=== PATIENT | female | born 1970 | race Caucasian/White ===

== ENCOUNTER 2017-09-19 17:26 | Emergency (ER) | payer SELFPAY ==
[2017-09-19] MEDS ORDERED: ALBUTEROL SULFATE 0.083% NEB 2.5 MG/3 ML AMPUL NEB ONE (18:11)
[2017-09-19] MEDS ORDERED: PREDNISONE 20 MG TABLET PO ONE (18:11)
--- NOTE | 2017-09-19 18:22 | ER Document Report ---
HPI - HPI Patient complains to provider of: Head and chest congestion Onset: Yesterday Onset/Duration: Gradual Quality of pain: Achy Severity: Moderate Pain Level: 3 Context: Patient complains of head congestion, ears popping, and chest congestion and wheezing since yesterday. Denies fever. Has taken OTC meds to help with symptoms. Does say whenever she gets sick she usually ends up wheezing and uses her sisters inhaler as she does not have one. Associated Symptoms: Nonproductive cough, Earache, Headache, Sinus pain/ drainage. denies: Fever Exacerbated by: Coughing Relieved by: Denies Similar symptoms previously: Yes Recently seen / treated by doctor: No - ROS ROS below otherwise negative: Yes Systems Reviewed and Negative: Yes All other systems reviewed and negative - CONSTITUTIONAL Constitutional: DENIES: Fever - EENT EENT: REPORTS: Ear Pain, Congestion - NEURO Neurology: REPORTS: Headache - CARDIOVASCULAR Cardiovascular: DENIES: Chest pain - RESPIRATORY Respiratory: REPORTS: Trouble Breathing, Coughing - GASTROINTESTINAL Gastrointestinal: DENIES: Abdominal Pain - URINARY Urinary: DENIES: Dysuria - REPRODUCTIVE Reproductive: DENIES: : - MUSCULOSKELETAL Musculoskeletal: DENIES: Extremity pain - DERM Skin Color: Normal Past Medical History - General Information source: Patient - Social History Smoking Status: Current Every Day Smoker Cigarette use (# per day): Yes Frequency of alcohol use: None Drug Abuse: None Lives with: Family Family History: Reviewed & Not Pertinent Pulmonary Medical History: Reports: Hx Asthma Past Surgical History: Reports: Hx Tubal Ligation - Immunizations Hx Diphtheria, Pertussis, Tetanus Vaccination: Yes Vertical Provider Document - CONSTITUTIONAL Agree With Documented VS: Yes Exam Limitations: No Limitations General Appearance: WD/WN, No Apparent Distress - HEENT HEENT: Atraumatic, Normocephalic Notes: TMs dull bilaterally, throat with mild erythema, positive PND. No sinus tenderness. - NECK Neck: Normal Inspection, Supple - RESPIRATORY Respiratory: No Respiratory Distress, Wheezing O2 Sat by Pulse Oximetry: 95 - CARDIOVASCULAR Cardiovascular: Regular Rate, Regular Rhythm - MUSCULOSKELETAL/EXTREMETIES Musculoskeletal/Extremeties: MAEW - NEURO Level of Consciousness: Awake, Alert, Appropriate - DERM Integumentary: Warm, Dry Course - Re-evaluation Re-evalutation: 09/19/17 19:05 Lungs clear after nebulizer treatment. - Vital Signs Vital signs: Temp Pulse Resp BP Pulse Ox 98.3 F 75 133/77 H 95 09/19/17 17:31 09/19/17 17:31 09/19/17 17:31 09/19/17 17:31 Discharge - Discharge Clinical Impression: URI, acute, Wheezing Condition: Good Disposition: HOME, SELF-CARE Additional Instructions: Prednisone as prescribed Inhaler 2 puffs every 4 hours as needed for cough and/or wheezing Push fluids OTC cold medication for symptom relief Follow-up with your doctor if not better by Monday Return as needed Prescriptions: Prednisone [Deltasone 10 mg Tablet] 10 mg PO ASDIR PRN #15 tablet PRN Reason: Forms: Return to Work
[2017-09-19] MEDS ORDERED: ALBUTEROL SULFATE HFA (90 MCG/PUFF) 8 GM MDI (1 MDI/ER DISP) IH ONE (19:09)
[2017-09-19 19:26] VITALS: BP 128/59
== END 2017-09-19 19:26 | disposition home or self-care (01) ==
LOC: ER 17:26
DX: J06.9 Acute upper respiratory infection, unspecified (principal); J45.909 Unspecified asthma, uncomplicated; R05 Cough; H92.09 Otalgia, unspecified ear; R51 Headache; J34.89 Other specified disorders of nose and nasal sinuses; F17.210 Nicotine dependence, cigarettes, uncomplicated; R09.82 Postnasal drip
CPT/HCPCS: 94640; 99283; J7512; J3490

== ENCOUNTER 2019-07-10 11:19 | Emergency (ER) | payer SELFPAY ==
[2019-07-10 11:25] VITALS: BP 122/71
--- NOTE | 2019-07-10 11:40 | ER Document Report ---
Addendum entered and electronically signed by GAURAV PADILLA PA-C 07/10/19 11:46: Course - Re-evaluation Re-evalutation: We will switch to ciloxan. - Vital Signs Vital signs: Temp Pulse Resp BP Pulse Ox 97.8 F 72 18 122/71 93 07/10/19 11:24 07/10/19 11:24 07/10/19 11:24 07/10/19 11:24 07/10/19 11:24 Discharge - Discharge Clinical Impression: Conjunctivitis, left eye Qualifiers: Conjunctivitis type: acute Acute conjunctivitis type: unspecified Qualified Code(s): H10.32 - Unspecified acute conjunctivitis, left eye Condition: Stable Disposition: HOME, SELF-CARE Instructions: Conjunctivitis ([facility]), Eyedrop Use ([facility]) Additional Instructions: Keep eyes clean Avoid scratching/touching eyes Wash hands regularly Use eye drops as directed Maintain adequate fluid intake tylenol/ibuprofen as needed over the counter cold medication as needed for symptoms F/u: with your PCM in 2-3 days for a recheck Consider consult with Ophthalmology for ongoing/worsening symptoms Return to the ED with any worsening symptoms and/or development of fever, headache, changes in vision, eye pain, worsening eye redness, redness around the eyes, purulent discharge, sore throat, facial swelling, neck pain/stiffness, chest pain, palpitations, syncope, shortness of breath, trouble breathing, abdominal pain, n/v/d, blood in stool/urine, dysuria, or other worsening symptoms that are concerning to you. Prescriptions: Ciprofloxacin HCl [Ciloxan 0.3% Oph Soln 2.5 ml] 1 - 2 drop OP Q2H #1 bottle Forms: Smoking Cessation Education, Return to Work Referrals: SANDIE RAMIREZ MD [ACTIVE STAFF] - Follow up as needed Original Note: HPI - HPI Time Seen by Provider: 07/10/19 11:39 Pain Level: Denies Notes: Patient is a 48-year-old female no significant past medical history who presents complaining of left eye redness, matting, discharge that began yesterday. Patient does not wear contact lenses. Patient denies any foreign body sensation or line of work with flying debris. She is able to eat and drink without difficulty. No recent illness. She has not had any changes in her vision. Denies any headache, fever, head injury, neck pain, URI, sore throat, chest pain, palpitations, syncope, cough, shortness of breath, wheeze, dyspnea, abdominal pain, nausea/vomiting/diarrhea, urinary retention, dysuria, hematuria, or rash. - ROS Systems Reviewed and Negative: Yes All other systems reviewed and negative - REPRODUCTIVE Reproductive: DENIES: : Past Medical History - Social History Smoking Status: Current Every Day Smoker Family History: Reviewed & Not Pertinent Pulmonary Medical History: Reports: Hx Asthma Renal/ Medical History: Denies: Hx Peritoneal Dialysis Past Surgical History: Reports: Hx Tubal Ligation - Immunizations Hx Diphtheria, Pertussis, Tetanus Vaccination: Yes Vertical Provider Document - CONSTITUTIONAL Agree With Documented VS: Yes Notes: PHYSICAL EXAMINATION: GENERAL: Well-appearing, well-nourished and in no acute distress. A&Ox4 HEAD: Atraumatic, normocephalic. EYES: Pupils equal round and reactive to light, extraocular movements intact, sclera anicteric, conjunctiva left injected with scant purulent discharge and mild matting. Non-tender to palp of the globe and eye itself. Rt conjunctiva wnl. No surrounding erythema or swelling noted. Visual acuity 20/25 b/l and in each eye (performed by myself at bedside with my own eye chart). No obvious foreign body noted. ENT: EAC clear b/l. TM's intact b/l without erythema, fluid, or perforation. Nares patent and without discharge. oropharynx clear without exudates. No tonsilar hypertrophy or erythema. Moist mucous membranes. No sinus tenderness. Uvula midline. No palatine shift. No airway compromise. No drooling or hoarseness. NECK: Normal range of motion, supple without lymphadenopathy. No rigidity /meningismus. LUNGS: Breath sounds clear to auscultation bilaterally and equal. No wheezes rales or rhonchi. HEART: Regular rate and rhythm without murmurs, rubs, gallops. Extremities: No cyanosis, clubbing, or edema b/l. Peripheral pulses 2+. Capillary refill less than 3 seconds. NEUROLOGICAL: Cranial nerves grossly intact. Normal speech, normal gait. PSYCH: Normal mood, normal affect. SKIN: Warm, Dry, normal turgor, no rashes or lesions noted. - INFECTION CONTROL TRAVEL OUTSIDE OF THE [place] IN LAST 30 DAYS: No Course - Re-evaluation Re-evalutation: 07/10/19 11:43 Patient is an afebrile, well-hydrated, 48 year-old female who presents to the emergency department with conjunctivitis to her left eye suspect viral/bacterial. Vitals are acceptable without significant tachycardia, tachypnea, or hypoxia. PE is otherwise unremarkable. Patient is nontoxic- appearing and is able to tolerate p.o. without difficulty. No labs or imaging warranted. Low suspicion for any retained corneal or lid foreign body, deep space infection including orbital cellulitis/abscess, acute glaucoma, penetrating globe injury, retinal detachment, meningitis, sepsis, fracture, compartment syndrome. I will send home with a prescription for Polytrim to use as directed. Conservative measures otherwise for symptoms with proper handwashing. Recheck with your PCM in 2-3 days. Consider follow-up with ophthalmology. Return to the ED with any worsening/concerning symptoms otherwise as reviewed in discharge. Patient is in agreement. - Vital Signs Vital signs: Temp Pulse Resp BP Pulse Ox 97.8 F 72 18 122/71 93 07/10/19 11:24 07/10/19 11:24 07/10/19 11:24 07/10/19 11:24 07/10/19 11:24 Discharge - Discharge Clinical Impression: Conjunctivitis, left eye Qualifiers: Conjunctivitis type: acute Acute conjunctivitis type: unspecified Qualified Code(s): H10.32 - Unspecified acute conjunctivitis, left eye Condition: Stable Disposition: HOME, SELF-CARE Instructions: Conjunctivitis ([facility]), Eyedrop Use ([facility]) Additional Instructions: Keep eyes clean Avoid scratching/touching eyes Wash hands regularly Use eye drops as directed Maintain adequate fluid intake tylenol/ibuprofen as needed over the counter cold medication as needed for symptoms F/u: with your PCM in 2-3 days for a recheck Consider consult with Ophthalmology for ongoing/worsening symptoms Return to the ED with any worsening symptoms and/or development of fever, headache, changes in vision, eye pain, worsening eye redness, redness around the eyes, purulent discharge, sore throat, facial swelling, neck pain/stiffness, chest pain, palpitations, syncope, shortness of breath, trouble breathing, abdominal pain, n/v/d, blood in stool/urine, dysuria, or other worsening symptoms that are concerning to you. Prescriptions: Polymyxin B Sulf/Trimethoprim [Polytrim Eye Drops] 1 drop OD Q3H #10 ml Forms: Smoking Cessation Education, Return to Work Referrals: SANDIE RAMIREZ MD [ACTIVE STAFF] - Follow up as needed
== END 2019-07-10 11:46 | disposition home or self-care (01) ==
LOC: ER 11:19
DX: H10.32 Unspecified acute conjunctivitis, left eye (principal); F17.200 Nicotine dependence, unspecified, uncomplicated; Z98.51 Tubal ligation status
CPT/HCPCS: 99282

== ENCOUNTER 2020-07-10 13:00 | Inpatient (IN) | payer SELFPAY ==
--- NOTE | 2020-07-10 13:14 | ER Document Report ---
ED Medical Screen (RME) - General Chief Complaint: Abdominal Pain >50 Stated Complaint: ABDOMINAL PAIN Time Seen by Provider: 07/10/20 13:04 Mode of Arrival: Ambulatory Information source: Patient Notes: 49-year-old female presented to ED for complaint of right lower quadrant abdominal pain. She states it started in the upper right and now is in the lower right quadrant. She states she has had some nausea and vomiting no fevers. She is alert oriented respirations regular nonlabored speaking in full sentences. She does have tenderness to the right lower quadrant. She states she tried to go to the bathroom this morning just had a little bowel movement. She states she does smoke a pack half pack a day drinks monthly no drugs. She states only medical history is a bilateral tubal ligation. She states she has had no other surgeries and has no other major ailments. She states she is allergic to penicillin. Patient is afebrile at this time. I have greeted and performed a rapid initial assessment of this patient. A comprehensive ED assessment and evaluation of the patient, analysis of test results and completion of medical decision making process will be conducted by an additional ED providers. TRAVEL OUTSIDE OF THE [place] IN LAST 30 DAYS: No - Related Data Allergies/Adverse Reactions: Penicillins Allergy (Severe, Verified 09/19/17 18:35) Anaphylaxis Past Medical History Pulmonary Medical History: Reports: Hx Asthma Renal/ Medical History: Denies: Hx Peritoneal Dialysis Past Surgical History: Reports: Hx Tubal Ligation - Immunizations Hx Diphtheria, Pertussis, Tetanus Vaccination: Yes Physical Exam - Vital signs Vitals: Temp Pulse Resp BP Pulse Ox 99.0 F 89 18 156/78 H 96 07/10/20 13:05 07/10/20 13:05 07/10/20 13:05 07/10/20 13:05 07/10/20 13:05 Course - Vital Signs Vital signs: Temp Pulse Resp BP Pulse Ox 99.0 F 89 18 156/78 H 96 07/10/20 13:05 07/10/20 13:05 07/10/20 13:05 07/10/20 13:05 07/10/20 13:05
[2020-07-10] MEDS ORDERED: ONDANSETRON 4 MG TAB.RAPDIS PO ONE (13:17)
[2020-07-10] MEDS ORDERED: OXYCODONE-ACETAMINOPHEN 5-325 MG TABLET PO ONE (13:18)
[2020-07-10 14:05] LABS: ABSOLUTE BASOPHILS # (AUTO) 0.2 10^3/uL (0.0-0.2); ABSOLUTE EOSINOPHILS # (AUTO) 0.1 10^3/uL (0.0-0.6); ABSOLUTE LYMPHOCYTES (AUTO) 1.4 10^3/uL (0.5-4.7); ABSOLUTE MONOCYTES (AUTO) 0.6 10^3/uL (0.1-1.4); ABSOLUTE NEUT (AUTO) 11.9 10^3/uL (1.7-8.2); BASOPHILS % (AUTO) 1.1 % (0-2); EOSINOPHILS % (AUTO) 0.4 % (0-6); HEMATOCRIT 45.1 % (36.0-47.0); HEMOGLOBIN 15.2 g/dL (12.0-15.5); LYMPHOCYTES % (AUTO) 9.7 % (13-45); MEAN CORPUSCULAR HGB CONC 33.7 g/dL (32.0-36.0); MEAN CORPUSCULAR VOLUME 98 fl (80-97); MONOCYTES % (AUTO) 4.1 % (3-13); PLATELET COUNT 335 10^3/uL (150-450); RED BLOOD COUNT 4.61 10^6/uL (3.72-5.28); RED CELL DISTRIBUTION WIDTH 13.9 % (11.5-14.0); SEGMENTED NEUTROPHILS % (AUTO) 84.7 % (42-78); TOTAL CELLS COUNTED % (AUTO) 100 %; WHITE BLOOD COUNT 14.1 10^3/uL (4.0-10.5)
[2020-07-10 14:37] LABS: ALKALINE PHOSPHATASE 90 U/L (38-126); ANION GAP 5 (5-19); ASPARTATE AMINO TRANSFERASE 27 U/L (14-36); BILIRUBIN,TOTAL 0.5 mg/dL (0.2-1.3); BLOOD UREA NITROGEN 12 mg/dL (7-20); CALCIUM 9.3 mg/dL (8.4-10.2); CARBON DIOXIDE 27 mmol/L (22-30); CHLORIDE 103 mmol/L (98-107); GLUCOSE 126 mg/dL (75-110); POTASSIUM 5.1 mmol/L (3.6-5.0); TOTAL PROTEIN 7.4 g/dL (6.3-8.2)
[2020-07-10 15:01] LABS: AMORPHOUS SEDIMENT,URINE 3+ /HPF; APPEARANCE,URINE TURBID; BILIRUBIN,URINE NEGATIVE (NEGATIVE); COLOR,URINE YELLOW; GLUCOSE, URINE NEGATIVE (NEGATIVE); KETONES,URINE NEGATIVE (NEGATIVE); LEUKOCYTE ESTERASE,URINE NEGATIVE (NEGATIVE); NITRITE,URINE NEGATIVE (NEGATIVE); PROTEIN,URINE NEGATIVE (NEGATIVE); URINE SPECIFIC GRAVITY 1.023; UROBILINOGEN,URINE NEGATIVE mg/dL (<2.0)
--- NOTE | 2020-07-10 16:17 | RADIOLOGY REPORT (SQ) ---
EXAM DESCRIPTION: CT ABD/PELVIS ORAL ONLY IMAGES COMPLETED DATE/TIME: 07/10/2020 4:05 pm REASON FOR STUDY: Right lower quadrant abdominal pain COMPARISON: None. TECHNIQUE: CT scan of the abdomen and pelvis performed without intravenous or oral contrast. Images reviewed with lung, soft tissue, and bone windows. Reconstructed coronal and sagittal MPR images revi ewed. All images stored on PACS. All CT scanners at this facility use dose modulation, iterative reconstruction, and/or weight based d osing when appropriate to reduce radiation dose to as low as reasonably achievable (ALARA). [facility]: Dose Right [facility]: CareDose [facility]: Dose Right [facility]: Teradose 4D [facility]: [employer] RADIATION DOSE: CT Rad equipment meets quality standard of care and radiation dose reduction techniq ues were employed. CTDIvol: 17.4 mGy. DLP: 918 mGy-cm.mGy. LIMITATIONS: None. FINDINGS: LOWER CHEST: No significant findings. No nodules or infiltrates. NON-CONTRASTED LIVER, SPLEEN, ADRENALS: Evaluation limited by lack of IV contrast. No identified sign ificant masses. PANCREAS: No masses. No peripancreatic inflammatory changes. GALLBLADDER: No identified stones by CT criteria. No inflammatory changes to suggest cholecystitis. RIGHT KIDNEY AND URETER: No suspicious masses. Assessment limited by lack of IV contrast. No signif icant calcifications. No hydronephrosis or hydroureter. LEFT KIDNEY AND URETER: No suspicious masses. Assessment limited by lack of IV contrast. No signifi cant calcifications. No hydronephrosis or hydroureter. AORTA AND RETROPERITONEUM: No aneurysm. No retroperitoneal masses or adenopathy. BOWEL AND PERITONEAL CAVITY: No obvious masses or inflammatory changes. No free fluid. APPENDIX: The appendix is dilated measured at 11.5 mm. Mild surrounding edema best demonstrated on s eries 3, image 46. Early appendicitis cannot be excluded. PELVIS, BLADDER, AND ABDOMINAL WALL:No abnormal masses. No free fluid. Bladder normal. BONES: No significant findings. OTHER: No other significant finding. IMPRESSION: Dilated appendix with very mild is surrounding inflammatory change. Early appendicitis is suspected. COMMENT: Quality ID # [id number]: Final reports with documentation of one or more dose reduction techniques (e.g., Automated exposure control, adjustment of the mA and/or kV according to patient size, use of iterative reconstruction technique) TECHNICAL DOCUMENTATION: JOB ID: [id number] 2010 [employer]- All Rights Reserved Reading location - IP/workstation name: [email or web address]
[2020-07-10] MEDS ORDERED: MORPHINE SULFATE 10 MG/ML INJ IV ONE (16:43)
[2020-07-10] MEDS ORDERED: RINGERS SOLUTION,LACTATED 1,000 ML IV ONE (16:43)
--- NOTE | 2020-07-10 16:45 | ER Document Report ---
ED GI/ - General Chief Complaint: Abdominal Pain >50 Stated Complaint: ABDOMINAL PAIN Time Seen by Provider: 07/10/20 13:04 Mode of Arrival: Ambulatory Information source: Patient Notes: 49-year-old female presents to the emergency room complaining of sudden onset of abdominal pain that started around 5 AM this morning. Complains of nausea with vomiting. Right lower quadrant cramping. No bad food. No fevers. No recent travel. No COVID-19 exposure. Did not take anything for her symptoms. TRAVEL OUTSIDE OF THE [place] IN LAST 30 DAYS: No - Related Data Allergies/Adverse Reactions: Penicillins Allergy (Severe, Verified 09/19/17 18:35) Anaphylaxis Past Medical History - General Information source: Patient - Social History Smoking Status: Current Every Day Smoker Chew tobacco use (# tins/day): No Frequency of alcohol use: Occasional Drug Abuse: None Family History: Reviewed & Not Pertinent Pulmonary Medical History: Reports: Hx Asthma Renal/ Medical History: Denies: Hx Peritoneal Dialysis Past Surgical History: Reports: Hx Tubal Ligation - Immunizations Hx Diphtheria, Pertussis, Tetanus Vaccination: Yes Review of Systems - Review of Systems Constitutional: No symptoms reported Cardiovascular: No symptoms reported Gastrointestinal: Abdominal pain, Nausea, Vomiting Skin: No symptoms reported Neurological/Psychological: No symptoms reported -: Yes All other systems reviewed and negative Physical Exam - Vital signs Vitals: Temp Pulse Resp BP Pulse Ox 99.0 F 89 18 156/78 H 96 07/10/20 13:05 07/10/20 13:05 07/10/20 13:05 07/10/20 13:05 07/10/20 13:05 - General General appearance: Appears well, Alert In distress: Moderate - Respiratory Respiratory status: No respiratory distress Chest status: Nontender Breath sounds: Normal Chest palpation: Normal - Cardiovascular Rhythm: Regular Heart sounds: Normal auscultation Murmur: No - Abdominal Inspection: Normal Distension: No distension Bowel sounds: Normal Tenderness: Tender, McBurney's point, Guarding, Rebound Organomegaly: No organomegaly - Back Back: Normal, Nontender. No: CVA tenderness - Neurological Neuro grossly intact: Yes Cognition: Normal Orientation: AAOx4 [place]ope Coma Scale Eye Opening: Spontaneous Ervin Coma Scale Verbal: Oriented [place] Coma Scale Motor: Obeys Commands Swoope Coma Scale Total: 15 Speech: Normal Motor strength normal: LUE, RUE, LLE, RLE Sensory: Normal - Skin Skin Temperature: Warm Skin Moisture: Dry Skin Color: Normal Course - Re-evaluation Re-evalutation: 07/10/20 16:44 Patient is resting with persistent pain. Reviewed lab and initial CT results with patient. Aware of appendicitis. Also aware of need for additional CT with IV contrast prior to calling surgery. Patient is agreeable to additional CT. CT, IV, and medications were ordered. 07/10/20 17:41 Spoke with patient confirmed acute appendicitis. Aware that I have spoken with general surgery. Patient is agreeable to admission. Patient will be seen by Dr. Cuevas general surgeon. 07/10/20 20:33 - Vital Signs Vital signs: Temp Pulse Resp BP Pulse Ox 99.5 F 77 16 132/73 H 95 07/10/20 20:01 07/10/20 20:01 07/10/20 20:01 07/10/20 20:01 07/10/20 20:01 - Laboratory Result Diagrams: 07/10/20 13:41 07/10/20 13:41 Laboratory results interpreted by me: 07/10/20 07/10/20 07/10/20 13:41 13:41 13:41 WBC 14.1 H MCV 98 H Lymph % (Auto) 9.7 L Absolute Neuts (auto) 11.9 H Seg Neutrophils % 84.7 H Sodium 135.2 L Potassium 5.1 H Glucose 126 H Urine Blood SMALL H - Diagnostic Test Radiology reviewed: Reports reviewed - Consults Dr. Cuevas Time consulted: 17:37 Reason for consultation: 07/10/20 17:42 Reviewed all labs and CT results with Dr. Cuevas who agrees to accept patient as admission for acute appendicitis. Rapid COVID testing was ordered, IV antibi otics ordered. Consulted provider: will come to ER Discharge - Discharge Clinical Impression: Acute appendicitis Qualifiers: Acute appendicitis type: unspecified acute appendicitis type Qualified Code(s): K35.80 - Unspecified acute appendicitis Condition: Stable Disposition: ADMITTED OBSERVATION Admitting Provider: Surgicalist Unit Admitted: Surgical Floor
--- NOTE | 2020-07-10 17:28 | RADIOLOGY REPORT (SQ) ---
EXAM DESCRIPTION: CT ABD/PELVIS WITH IV ONLY IMAGES COMPLETED DATE/TIME: 07/10/2020 5:16 pm REASON FOR STUDY: abdominal pain COMPARISON: None. TECHNIQUE: CT scan of the abdomen and pelvis performed with oral contrast and no intravenous contras t. Images reviewed with lung, soft tissue, and bone windows. Reconstructed coronal and sagittal MPR i mages reviewed. All images stored on PACS. All CT scanners at this facility use dose modulation, iterative reconstruction, and/or weight based d osing when appropriate to reduce radiation dose to as low as reasonably achievable (ALARA). [facility]: Dose Right [facility]: CareDose [facility]: Dose Right [facility]: Teradose 4D [facility]: [employer] RADIATION DOSE: CT Rad equipment meets quality standard of care and radiation dose reduction techniq ues were employed. CTDIvol: NaN - NaN mGy. DLP: 0 mGy-cm.mGy. LIMITATIONS: None. FINDINGS: LOWER CHEST: No significant findings. No nodules or infiltrates. NON-CONTRASTED LIVER, SPLEEN, ADRENALS: Evaluation limited by lack of IV contrast. No identified sign ificant masses. PANCREAS: No masses. No peripancreatic inflammatory changes. GALLBLADDER: No identified stones by CT criteria. No inflammatory changes to suggest cholecystitis. RIGHT KIDNEY AND URETER: No solid masses. No significant calcification. No hydronephrosis or hydroure ter. LEFT KIDNEY AND URETER: No solid masses. No significant calcification. No hydronephrosis or hydrouret er. AORTA AND RETROPERITONEUM: No aneurysm. No retroperitoneal masses or adenopathy. BOWEL AND PERITONEAL CAVITY: No obvious masses or inflammatory changes. No free fluid. APPENDIX: The appendix is well visualized, and appears mildly prominent with trace periappendiceal in flammatory changes. No pneumoperitoneum. No abscess. PELVIS, BLADDER, AND ABDOMINAL WALL: No abnormal pelvic masses. No abdominal wall hernias. Bladder un remarkable. BONES: Incidental note is made of right marielena sacralization of the L5 element demonstrating and Bertol otti segment with sclerotic margins suggesting an element of pseudoarthrosis. Mild degenerative limon ges are seen of the hips. OTHER: No other significant finding. IMPRESSION: Acute uncomplicated appendicitis. Chronic and incidental findings as detailed above. TECHNICAL DOCUMENTATION: JOB ID: [id number] Quality ID # [id number]: Final reports with documentation of one or more dose reduction techniques (e.g., Au tomated exposure control, adjustment of the mA and/or kV according to patient size, use of iterative reconstruction technique) 2010 [employer]- All Rights Reserved Reading location - IP/workstation name: [email or web address]
[2020-07-10] MEDS ORDERED: METRONIDAZOLE 500 MG/NS RTU 500 MG/100 ML RTUPB IV ONE (17:41)
[2020-07-10] MEDS ORDERED: CIPROFLOXACIN 400 MG/D5W RTU 400 MG/200 ML RTUPB IV ONE (17:41)
[2020-07-10 18:44] LABS: URINE AMPHETAMINES SCREEN NEGATIVE; URINE BARBITURATES SCREEN NEGATIVE; URINE BENZODIAZEPINES SCREEN NEGATIVE; URINE MARIJUANA (THC) SCREEN NEGATIVE; URINE METHADONE SCREEN NEGATIVE; URINE PHENCYCLIDINE SCREEN NEGATIVE
[2020-07-10 18:45] LABS: URINE COCAINE SCREEN UNCONFIRMED POSITIVE
[2020-07-10] MEDS ORDERED: ONDANSETRON HCL INJ/PF 4 MG/2 ML SDV IV PRN (19:24)
--- NOTE | 2020-07-10 19:30 | Progress Note ---
Provider Note Provider Note: Urine drug screen is positive for cocaine. I again discussed the case with anesthesia. They have recommended admission with IV antibiotics, to allow the cocaine to metabolize from her system. In their opinion, the risk of adverse cardiac events is higher than risk of waiting. I believe this is reasonable, as she does not have sign of overwhelming sepsis or perforation. Plan for surgery tomorrow, after repeat urine drug screen.
--- NOTE | 2020-07-10 19:31 | PDOC H&P ---
History of Present Illness Patient complains of: Right lower quadrant abdominal pain, nausea, vomiting History of Present Illness: AHMET DAUGHERTY is a 49 year old female with a 1 day history of sharp, stabbing right lower quadrant abdominal pain. She has had accompanying nausea and occasional vomiting. Her pain does not radiate. It is worse with movement and palpation. Nothing makes it better. She denies fevers or chills. She rates her pain as 4 out of 10. It has progressively worsened over the last 12 hours. She denies melena, hematochezia, diarrhea, constipation, fatigue, headache, blurry vision, dizziness, orthostasis. Past Medical History Pulmonary Medical History: Reports: Asthma Past Surgical History Past Surgical History: Reports: Tubal Ligation Social History Smoking Status: Current Every Day Smoker Electronic Cigarette use?: No Frequency of Alcohol Use: Social - Once per week Hx Recreational Drug Use: Yes Drugs: Cocaine - Last used cocaine 3 days ago Family History Family History: Reviewed & Not Pertinent Parental Family History Reviewed: Yes Children Family History Reviewed: Yes Sibling(s) Family History Reviewed.: Yes Medication/Allergy Home Medications: Lactase [Dairy Digestive] 9,000 unit PO DAILY 07/10/20 Allergies/Adverse Reactions: Penicillins Allergy (Severe, Verified 09/19/17 18:35) Anaphylaxis Review of Systems Constitutional: ABSENT: anorexia, chills, fatigue, fever(s) Eyes: ABSENT: visual disturbances Ears: ABSENT: hearing changes Nose, Mouth, and Throat: ABSENT: sore throat Cardiovascular: ABSENT: chest pain Respiratory: ABSENT: cough Gastrointestinal: PRESENT: abdominal pain, bloating, nausea, vomiting. ABSENT: hematemesis, hematochezia, melena Genitourinary: ABSENT: dysuria Musculoskeletal: ABSENT: back pain Integumentary: ABSENT: pruritus, rash Neurological: ABSENT: confusion, convulsions, dizziness Psychiatric: ABSENT: anxiety, depression Endocrine: ABSENT: cold intolerance, heat intolerance Hematologic/Lymphatic: ABSENT: easy bleeding, easy bruising Physical Exam Vital Signs: Temp Pulse Resp BP Pulse Ox 99.0 F 89 18 156/78 H 96 07/10/20 13:05 07/10/20 13:05 07/10/20 13:05 07/10/20 13:05 07/10/20 13:05 Intake & Output 07/09/20 07/10/20 07/11/20 06:59 06:59 06:59 Weight 99 kg General appearance: PRESENT: no acute distress, cooperative Head exam: PRESENT: atraumatic, normocephalic Eye exam: PRESENT: EOMI, PERRLA. ABSENT: scleral icterus Mouth exam: PRESENT: moist, neck supple Neck exam: ABSENT: meningismus, tenderness, thyromegaly, tracheal deviation Respiratory exam: PRESENT: unlabored. ABSENT: tachypnea, wheezes Cardiovascular exam: ABSENT: tachycardia Pulses: PRESENT: normal radial pulses GI/Abdominal exam: PRESENT: soft, tenderness - Right lower quadrant. ABSENT: distended, firm Rectal exam: PRESENT: deferred Extremities exam: ABSENT: clubbing Musculoskeletal exam: ABSENT: deformity Neurological exam: PRESENT: alert, awake, oriented to person, oriented to place, oriented to time, oriented to situation, CN II-XII grossly intact. ABSENT: motor sensory deficit Psychiatric exam: ABSENT: agitated, anxious, depressed Focused psych exam: ABSENT: delusional Skin exam: ABSENT: cyanosis, erythema, jaundice Results Laboratory Results: 07/10/20 13:41 07/10/20 13:41 07/10/20 07/10/20 07/10/20 13:41 13:41 13:41 WBC 14.1 H RBC 4.61 Hgb 15.2 Hct 45.1 MCV 98 H MCH 33.0 MCHC 33.7 RDW 13.9 Plt Count 335 Seg Neutrophils % 84.7 H Sodium 135.2 L Potassium 5.1 H Chloride 103 Carbon Dioxide 27 Anion Gap 5 BUN 12 Creatinine 0.78 Est GFR ( Amer) > 60 Glucose 126 H Calcium 9.3 Total Bilirubin 0.5 AST 27 Alkaline Phosphatase 90 Total Protein 7.4 Albumin 4.0 Lipase 34.6 Urine Color YELLOW Urine Appearance TURBID Urine pH 5.0 Ur Specific [place] 1.023 Urine Protein NEGATIVE Urine Glucose (UA) NEGATIVE Urine Ketones NEGATIVE Urine Blood SMALL H Urine Nitrite NEGATIVE Ur Leukocyte Esterase NEGATIVE Urine WBC (Auto) 4 Impressions: Abdomen/Pelvis CT 07/10/20 16:35 IMPRESSION: Acute uncomplicated appendicitis. Chronic and incidental findings as detailed above. Assessment & Plan - Diagnosis (1) Acute appendicitis Qualifiers: Acute appendicitis type: unspecified acute appendicitis type Qualified Code(s): K35.80 - Unspecified acute appendicitis Is this a current diagnosis for this admission?: Yes - Time Anticipated Discharge Disposition: Home, Self Care Anticipated Discharge Timeframe: unknown - Plan Summary Plan Summary: 51-year-old female with right lower quadrant pain, nausea, vomiting. She has a CT scan which shows inflammation of the appendix, consistent with acute appendicitis. Clinically, she does appear to have acute appendicitis. I have discussed her social history at length. She reports taking cocaine approximately 3 days ago. I will check her urine for evidence of cocaine. I have discussed this at length with anesthesia. The recommendation is as follows: If she still has cocaine residual in her system, she will need to be deferred until tomorrow. We will make a decision regarding surgery depending on her urine drug screen.
[2020-07-10] MEDS: FAMOTIDINE INJ/PF 20 MG/2 ML SDV IV SCH (21:52)
[2020-07-10] MEDS: KETOROLAC TROMETHAMINE INJ/PF 30 MG/1 ML SDV IV SCH (21:52)
[2020-07-10] MEDS: DEXTROSE 5%-LACTATED RINGERS 1,000 ML IV PRN (21:53)
[2020-07-10] MEDS ORDERED: METRONIDAZOLE 500 MG/NS RTU 500 MG/100 ML RTUPB IV SCH (22:00)
[2020-07-10] MEDS ORDERED: CIPROFLOXACIN 400 MG/D5W RTU 400 MG/200 ML RTUPB IV SCH (22:00)
[2020-07-11] MEDS: KETOROLAC TROMETHAMINE INJ/PF 30 MG/1 ML SDV IV SCH ×3 (05:25→21:30)
[2020-07-11] MEDS: METRONIDAZOLE 500 MG/NS RTU 500 MG/100 ML RTUPB IV SCH ×3 (05:26→22:33)
[2020-07-11] MEDS: DEXTROSE 5%-LACTATED RINGERS 1,000 ML IV PRN (07:02)
[2020-07-11] MEDS ORDERED: NEOSTIGMINE METHYLSULFATE 10 MG/10 ML VIAL ONE (09:49)
[2020-07-11] MEDS ORDERED: GLYCOPYRROLATE 1 MG/5 ML VIAL ONE (09:49)
[2020-07-11] MEDS: CIPROFLOXACIN 400 MG/D5W RTU 400 MG/200 ML RTUPB IV SCH ×2 (10:12→21:29)
[2020-07-11] MEDS: FAMOTIDINE INJ/PF 20 MG/2 ML SDV IV SCH ×2 (10:12→21:30)
[2020-07-11] MEDS: MORPHINE SULFATE 10 MG/ML INJ IV PRN (12:06)
[2020-07-11 14:32] LABS: URINE AMPHETAMINES SCREEN NEGATIVE; URINE BARBITURATES SCREEN NEGATIVE; URINE BENZODIAZEPINES SCREEN NEGATIVE; URINE MARIJUANA (THC) SCREEN NEGATIVE; URINE METHADONE SCREEN NEGATIVE; URINE PHENCYCLIDINE SCREEN NEGATIVE
[2020-07-11] MEDS ORDERED: BUPIVACAINE HCL 0.25 % INJ/PF (2.5 MG/1 ML) 30 ML VIAL ONE (15:31)
[2020-07-11] MEDS ORDERED: DEXAMETHASONE SOD PHOSPHATE INJ 4 MG/1 ML VIAL ONE (16:05)
[2020-07-11] MEDS ORDERED: ONDANSETRON HCL INJ/PF 4 MG/2 ML SDV ONE (16:05)
[2020-07-11] MEDS ORDERED: LIDOCAINE 2% INJ-PF (100 MG/5 ML) SYRINGE ONE (16:05)
[2020-07-11] MEDS ORDERED: FENTANYL CITRATE INJ/PF 100 MCG/2 ML AMPUL ONE (16:05)
[2020-07-11] MEDS ORDERED: MIDAZOLAM 2 MG/2 ML INJ ONE (16:05)
[2020-07-11] MEDS ORDERED: HYDROMORPHONE HCL INJ/PF 2 MG/ML AMPULE ONE (16:06)
[2020-07-11] MEDS ORDERED: PROPOFOL INJ 200 MG/20 ML VIAL IV ONE (16:06)
[2020-07-11 16:18] LABS: URINE AMPHETAMINES SCREEN NEGATIVE; URINE BARBITURATES SCREEN NEGATIVE; URINE BENZODIAZEPINES SCREEN NEGATIVE; URINE MARIJUANA (THC) SCREEN NEGATIVE; URINE METHADONE SCREEN NEGATIVE; URINE PHENCYCLIDINE SCREEN NEGATIVE
[2020-07-11] MEDS ORDERED: FENTANYL CITRATE INJ/PF 100 MCG/2 ML AMPUL IV PRN ×3 (17:18)
[2020-07-11] MEDS ORDERED: OXYCODONE-ACETAMINOPHEN 5-325 MG TABLET PO PRN ×2 (17:18)
[2020-07-11] MEDS ORDERED: MORPHINE SULFATE 10 MG/ML INJ IV PRN (17:18)
[2020-07-11] MEDS ORDERED: MEPERIDINE HCL/PF INJ 25 MG/1 ML DISP.SYRIN IV PRN (17:18)
[2020-07-11] MEDS ORDERED: DIPHENHYDRAMINE HCL 50 MG/ML VIAL IV PRN (17:18)
[2020-07-11] MEDS ORDERED: PROMETHAZINE HCL INJ 25 MG/1 ML VIAL IV PRN ×2 (17:18)
[2020-07-11] MEDS ORDERED: SUGAMMADEX SODIUM 200 MG/2 ML SDV IV ONE (17:38)
[2020-07-11] MEDS ORDERED: ACETAMINOPHEN 1,000 MG/100 ML RTUPB IV ONE (18:03)
--- NOTE | 2020-07-11 18:04 | Operative Report ---
Nonrecallable Operative Report DATE OF SURGERY: 07/11/20 PREOPERATIVE DIAGNOSIS: appendicitis POSTOPERATIVE DIAGNOSIS: Ruptured appendicitis OPERATION: Laparoscopic appendectomy SURGEON: HUSSAIN LIMON ANESTHESIA: GA TISSUE REMOVED OR ALTERED: Appendix COMPLICATIONS: None ESTIMATED BLOOD LOSS: 10 cc INTRAOPERATIVE FINDINGS: Ruptured appendicitis PROCEDURE: Patient brought to the operating awake alert stable condition placed in the operative table supine position induced under general anesthesia and intubated. After appropriate timeout site verification the procedure commenced. An infraumbilical 5 mm incision was made with a 15 blade and a 5 mm port a varies needle was placed into the abdominal cavity intra-abdominal visualization after insufflation revealed no evidence of Veress needle or trocar injury a suprapubic 5 mm port was placed under direct vision a left lower quadrant 11 mm port all under direct vision. Initial visualization revealed approximately 50 to 100 cc of purulent fluid in the pelvis and right lower quadrant this was suctioned free. The cecum was identified and placed on traction the appendix was identified the mesoappendix was then grasped with a grasper and we came across the mesoappendix with 1 firing of the CAMILLE stapler with a vascular load. We then came across the base of the appendix on the cecum with 1 firing of the Endo CAMILLE stapler with a blue load the appendix was placed in the Endobag and removed through the left lower quadrant port site the pelvis right upper quadrant right abdominal cavity was copiously irrigated with normal saline suctioned dry until we had a clear effluent. The left lower quadrant incision was closed with 0 Vicryl in the fascia and then all 3 skin incisions were closed with intracuticular 4-0 Biosyn there were anesthetized with point 5% Marcaine solution and Steri-Strips were applied which completed the procedure Estimated blood loss was less than 10 cc sponge and needle counts correct x2 the patient was awakened in the operating room extubated transferred recovery in stable condition no complications
[2020-07-11 19:16] LABS: HEMATOCRIT 40.6 % (36.0-47.0); HEMOGLOBIN 13.8 g/dL (12.0-15.5); MEAN CORPUSCULAR HEMOGLOBIN 33.8 pg (27.0-33.4); MEAN CORPUSCULAR VOLUME 99 fl (80-97); PLATELET COUNT 226 10^3/uL (150-450); RED BLOOD COUNT 4.08 10^6/uL (3.72-5.28); WHITE BLOOD COUNT 10.3 10^3/uL (4.0-10.5)
[2020-07-11 19:32] LABS: BLOOD UREA NITROGEN 8 mg/dL (7-20); GLUCOSE 149 mg/dL (75-110); POTASSIUM 4.2 mmol/L (3.6-5.0)
[2020-07-11 19:38] LABS: CARBON DIOXIDE 26 mmol/L (22-30); CHLORIDE 103 mmol/L (98-107)
[2020-07-11 19:40] LABS: ABSOLUTE LYMPHOCYTES# (MANUAL) 0.3 10^3/uL (0.5-4.7); ABSOLUTE MONOCYTES # (MANUAL) 0.1 10^3/uL (0.1-1.4); BAND NEUTROPHILS % (MANUAL) 6 % (3-5); BASOPHILS % (MANUAL) 0 % (0-2); EOSINOPHILS % (MANUAL) 1 % (0-6); LYMPHOCYTES % (MANUAL) 3 % (13-45); MONOCYTES % (MANUAL) 1 % (3-13); SEGMENTED NEUTROPHILS % (MAN) 89 % (42-78); TOTAL CELLS COUNTED 100
[2020-07-11 19:41] LABS: ANION GAP 5 (5-19); PLATELET COMMENT ADEQUATE; RBC MORPHOLOGY COMMENT NORMO-CYTIC/CHROMIC; TOXIC GRANULATION SLIGHT; TOXIC VACUOLATION PRESENT
[2020-07-12] MEDS: DEXTROSE 5%-LACTATED RINGERS 1,000 ML IV PRN ×2 (01:42→15:58)
[2020-07-12] MEDS: METRONIDAZOLE 500 MG/NS RTU 500 MG/100 ML RTUPB IV SCH ×3 (05:04→21:39)
[2020-07-12] MEDS: KETOROLAC TROMETHAMINE INJ/PF 30 MG/1 ML SDV IV SCH ×3 (05:05→21:39)
--- NOTE | 2020-07-12 09:37 | PDOC PROGRESS REPORT ---
Subjective Progress Note for:: 07/12/20 Subjective:: feesl better this am Reason For Visit: ACUTE APPENDICITIS,COCAINE POSITIVE Physical Exam Vital Signs: Temp Pulse Resp BP Pulse Ox 98.5 F 76 18 101/54 L 96 07/12/20 07:26 07/12/20 07:26 07/12/20 07:26 07/12/20 07:26 07/12/20 07:26 Intake & Output 07/11/20 07/12/20 07/13/20 06:59 06:59 06:59 Intake Total 1882 4800 150 Output Total 0 605 200 Balance 1882 4195 -50 Weight 100.4 kg 102.4 kg General appearance: PRESENT: no acute distress Head exam: PRESENT: normocephalic Eye exam: PRESENT: EOMI Ear exam: PRESENT: normal external ear exam Mouth exam: PRESENT: moist Neck exam: PRESENT: full ROM Respiratory exam: PRESENT: clear to auscultation mayte Cardiovascular exam: PRESENT: RRR Vascular exam: PRESENT: normal capillary refill Breast: PRESENT: Normal GI/Abdominal exam: PRESENT: soft Rectal exam: PRESENT: deferred Extremities exam: PRESENT: full ROM Musculoskeletal exam: PRESENT: full ROM Neurological exam: PRESENT: alert, awake, oriented to person, oriented to place Psychiatric exam: PRESENT: appropriate affect Skin exam: PRESENT: dry - s/p laparoscopic appendectomy for perforated appendicitis doing better this am less pain wbc trending down will cont iv abx increased activity prob home in am. Results Laboratory Results: 07/11/20 19:00 07/11/20 19:00 07/11/20 07/11/20 19:00 19:00 WBC 10.3 RBC 4.08 Hgb 13.8 Hct 40.6 MCV 99 H MCH 33.8 H MCHC 34.0 RDW 14.0 Plt Count 226 Seg Neutrophils % Not Reportable Sodium 133.6 L Potassium 4.2 Chloride 103 Carbon Dioxide 26 Anion Gap 5 BUN 8 Creatinine 0.88 Est GFR ( Amer) > 60 Glucose 149 H Calcium 8.0 L Impressions: Abdomen/Pelvis CT 07/10/20 16:35 IMPRESSION: Acute uncomplicated appendicitis. Chronic and incidental findings as detailed above. Assessment & Plan - Time Anticipated Discharge Disposition: Home, Self Care Anticipated Discharge Timeframe: within 24 hours
[2020-07-12] MEDS: CIPROFLOXACIN 400 MG/D5W RTU 400 MG/200 ML RTUPB IV SCH ×2 (09:46→21:39)
[2020-07-12] MEDS: FAMOTIDINE INJ/PF 20 MG/2 ML SDV IV SCH ×2 (09:46→21:39)
[2020-07-12 10:24] LABS: ABSOLUTE BASOPHILS # (AUTO) 0.1 10^3/uL (0.0-0.2); ABSOLUTE LYMPHOCYTES (AUTO) 0.9 10^3/uL (0.5-4.7); ABSOLUTE MONOCYTES (AUTO) 0.3 10^3/uL (0.1-1.4); ABSOLUTE NEUT (AUTO) 8.5 10^3/uL (1.7-8.2); BASOPHILS % (AUTO) 0.5 % (0-2); EOSINOPHILS % (AUTO) 0.5 % (0-6); HEMOGLOBIN 12.2 g/dL (12.0-15.5); LYMPHOCYTES % (AUTO) 9.1 % (13-45); MEAN CORPUSCULAR HEMOGLOBIN 34.1 pg (27.0-33.4); MEAN CORPUSCULAR HGB CONC 34.8 g/dL (32.0-36.0); MEAN CORPUSCULAR VOLUME 98 fl (80-97); MONOCYTES % (AUTO) 3.5 % (3-13); PLATELET COUNT 205 10^3/uL (150-450); RED BLOOD COUNT 3.56 10^6/uL (3.72-5.28); RED CELL DISTRIBUTION WIDTH 13.7 % (11.5-14.0); SEGMENTED NEUTROPHILS % (AUTO) 86.4 % (42-78); TOTAL CELLS COUNTED % (AUTO) 100 %; WHITE BLOOD COUNT 9.9 10^3/uL (4.0-10.5)
[2020-07-12 10:37] LABS: ANION GAP 8 (5-19); BLOOD UREA NITROGEN 16 mg/dL (7-20); CALCIUM 8.1 mg/dL (8.4-10.2); CARBON DIOXIDE 27 mmol/L (22-30); CHLORIDE 102 mmol/L (98-107); GLUCOSE 117 mg/dL (75-110)
[2020-07-12] MEDS: MORPHINE SULFATE 10 MG/ML INJ IV PRN (15:58)
[2020-07-13] MEDS: METRONIDAZOLE 500 MG/NS RTU 500 MG/100 ML RTUPB IV SCH ×3 (05:14→21:15)
[2020-07-13] MEDS: KETOROLAC TROMETHAMINE INJ/PF 30 MG/1 ML SDV IV SCH ×3 (05:14→21:17)
[2020-07-13 06:55] LABS: HEMATOCRIT 34.3 % (36.0-47.0); HEMOGLOBIN 11.7 g/dL (12.0-15.5); MEAN CORPUSCULAR HEMOGLOBIN 33.9 pg (27.0-33.4); MEAN CORPUSCULAR HGB CONC 34.1 g/dL (32.0-36.0); MEAN CORPUSCULAR VOLUME 99 fl (80-97); PLATELET COUNT 192 10^3/uL (150-450); RED BLOOD COUNT 3.46 10^6/uL (3.72-5.28); RED CELL DISTRIBUTION WIDTH 13.4 % (11.5-14.0); WHITE BLOOD COUNT 7.2 10^3/uL (4.0-10.5)
[2020-07-13 07:17] LABS: BLOOD UREA NITROGEN 15 mg/dL (7-20); CALCIUM 7.5 mg/dL (8.4-10.2); GLUCOSE 128 mg/dL (75-110)
[2020-07-13 07:20] LABS: ABSOLUTE LYMPHOCYTES# (MANUAL) 0.4 10^3/uL (0.5-4.7); ABSOLUTE MONOCYTES # (MANUAL) 0.3 10^3/uL (0.1-1.4); BAND NEUTROPHILS % (MANUAL) 4 % (3-5); BASOPHILS % (MANUAL) 0 % (0-2); EOSINOPHILS % (MANUAL) 1 % (0-6); LYMPHOCYTES % (MANUAL) 6 % (13-45); MONOCYTES % (MANUAL) 4 % (3-13); PLATELET COMMENT ADEQUATE; RBC MORPHOLOGY COMMENT NORMO-CYTIC/CHROMIC; SEGMENTED NEUTROPHILS % (MAN) 85 % (42-78); TOTAL CELLS COUNTED 100
[2020-07-13 07:22] LABS: ANION GAP 6 (5-19); CARBON DIOXIDE 24 mmol/L (22-30); CHLORIDE 103 mmol/L (98-107)
[2020-07-13] MEDS ORDERED: ACETAMINOPHEN 325 MG TABLET ONE (08:32)
[2020-07-13] MEDS: ACETAMINOPHEN 325 MG TABLET PO PRN ×2 (08:35→17:04)
[2020-07-13] MEDS: FAMOTIDINE INJ/PF 20 MG/2 ML SDV IV SCH ×2 (10:36→21:17)
[2020-07-13] MEDS: CIPROFLOXACIN 400 MG/D5W RTU 400 MG/200 ML RTUPB IV SCH ×2 (10:37→21:15)
[2020-07-13] MEDS ORDERED: ACETAMINOPHEN 325 MG TABLET PO PRN ×2 (18:00→18:30)
--- NOTE | 2020-07-13 20:30 | PDOC PROGRESS REPORT ---
Subjective Progress Note for:: 07/13/20 Subjective:: Mild abdominal pains but had flatus and BM today Reason For Visit: RUPTURED APPENDIX Physical Exam Vital Signs: Temp Pulse Resp BP Pulse Ox 98.2 F 86 17 117/60 90 L 07/13/20 19:48 07/13/20 19:48 07/13/20 19:48 07/13/20 19:48 07/13/20 19:48 Intake & Output 07/12/20 07/13/20 07/14/20 06:59 06:59 06:59 Intake Total 4800 3255 1040 Output Total 605 1000 1400 Balance 4195 2255 -360 Weight 102.4 kg 103 kg 88.9 kg Exam: Had a fever of 102.8 late this afternoon and discharge was then canceled Results Laboratory Results: 07/13/20 06:07 07/13/20 06:07 07/13/20 07/13/20 06:07 06:07 WBC 7.2 RBC 3.46 L Hgb 11.7 L Hct 34.3 L MCV 99 H MCH 33.9 H MCHC 34.1 RDW 13.4 Plt Count 192 Seg Neutrophils % Not Reportable Sodium 133.4 L Potassium 4.0 D Chloride 103 Carbon Dioxide 24 Anion Gap 6 BUN 15 Creatinine 0.86 Est GFR ( Amer) > 60 Glucose 128 H Calcium 7.5 L Impressions: Abdomen/Pelvis CT 07/10/20 16:35 IMPRESSION: Acute uncomplicated appendicitis. Chronic and incidental findings as detailed above. Assessment & Plan - Diagnosis (1) Acute perforated appendicitis Is this a current diagnosis for this admission?: Yes - Time Critical Time spent with patient: 15-24 minutes Anticipated Discharge Disposition: Home, Self Care Anticipated Discharge Timeframe: within 24 hours - Inpatient Certification Medical Necessity: Need for IV Antibiotics - Plan Summary Plan Summary: Repeat blood culture was ordered. CBC with differential will be done in the morning. Stat chest x-ray was ordered to make sure patient is not developing pneumonia. We will cancel discharge today
--- NOTE | 2020-07-13 21:11 | RADIOLOGY REPORT (SQ) ---
XR CHEST 2 VIEWS HISTORY: Rule out pneumonia. COMPARISON: 10/13/2012 FINDINGS: The heart size is within normal limits. There is no pulmonary vascular congestion. There is a small patchy opacity in the right lower lobe. No large pleural effusions or pneumothorax. The bony structures are preserved. IMPRESSION: Focal opacity in the right lower lobe which may represent infection.
[2020-07-14] MEDS: METRONIDAZOLE 500 MG/NS RTU 500 MG/100 ML RTUPB IV SCH (05:21)
[2020-07-14] MEDS: KETOROLAC TROMETHAMINE INJ/PF 30 MG/1 ML SDV IV SCH (05:21)
[2020-07-14 05:30] LABS: ABSOLUTE EOSINOPHILS # (AUTO) 0.1 10^3/uL (0.0-0.6); ABSOLUTE LYMPHOCYTES (AUTO) 0.3 10^3/uL (0.5-4.7); ABSOLUTE MONOCYTES (AUTO) 0.3 10^3/uL (0.1-1.4); ABSOLUTE NEUT (AUTO) 5.4 10^3/uL (1.7-8.2); BASOPHILS % (AUTO) 0.5 % (0-2); EOSINOPHILS % (AUTO) 1.5 % (0-6); HEMATOCRIT 34.4 % (36.0-47.0); HEMOGLOBIN 11.9 g/dL (12.0-15.5); LYMPHOCYTES % (AUTO) 5.7 % (13-45); MEAN CORPUSCULAR HEMOGLOBIN 33.7 pg (27.0-33.4); MEAN CORPUSCULAR HGB CONC 34.6 g/dL (32.0-36.0); MEAN CORPUSCULAR VOLUME 97 fl (80-97); MONOCYTES % (AUTO) 5.6 % (3-13); PLATELET COUNT 195 10^3/uL (150-450); RED BLOOD COUNT 3.53 10^6/uL (3.72-5.28); RED CELL DISTRIBUTION WIDTH 13.6 % (11.5-14.0); SEGMENTED NEUTROPHILS % (AUTO) 86.7 % (42-78); TOTAL CELLS COUNTED % (AUTO) 100 %; WHITE BLOOD COUNT 6.2 10^3/uL (4.0-10.5)
[2020-07-14 05:55] LABS: ANION GAP 6 (5-19); BLOOD UREA NITROGEN 8 mg/dL (7-20); CALCIUM 7.9 mg/dL (8.4-10.2); CARBON DIOXIDE 25 mmol/L (22-30); CHLORIDE 105 mmol/L (98-107); GLUCOSE 126 mg/dL (75-110); POTASSIUM 4.2 mmol/L (3.6-5.0)
[2020-07-14] MEDS: CIPROFLOXACIN 400 MG/D5W RTU 400 MG/200 ML RTUPB IV SCH (09:51)
[2020-07-14] MEDS: FAMOTIDINE INJ/PF 20 MG/2 ML SDV IV SCH (09:52)
[2020-07-14 12:23] VITALS: BP 143/73
--- NOTE | 2020-07-14 18:35 | PDOC DISCHARGE SUMMARY ---
General - Admit/Disc Date/PCP Admission Date/Primary Care Provider: 07/12/20 13:28 Discharge Date: 07/14/20 - Discharge Diagnosis Final Diagnosis: Ruptured acute appendicitis - Assessment Summary: Patient underwent laparoscopic appendectomy on 07/11/[address] Castillo for ruptured acute appendicitis. Patient did relatively well and discharged today. She did have a fever last night which may be due to atelectasis. She was then discharged on p.o. Cipro 500 mg twice a day for 4 days. Patient will be followed in the surgical clinic in 2 weeks - Additional Information Resuscitation Status: Full Code - Follow-up surgical clinic in 2weeks, patient given prescription for Cipro 500 mg twice a day for 4 days. And also prescription for Toradol. Discharge Diet: As Tolerated Discharge Activity: Activity As Tolerated Referrals: [facility] [Provider Group] - 07/21/20 9:45 am Home Medications: Lactase [Dairy Digestive] 9,000 unit PO DAILY 07/10/20 History of Present Illiness History of Present Illness: AHMET DAUGHERTY is a 49 year old female who underwent laparoscopic appendectomy for perforated appendix on 07/11/[address] Castillo. Hospital Course Hospital Course: Underwent laparoscopic appendectomy by Dr. Castillo on 07/11/2020 for perforated acute appendicitis. Patient did quite well and discharge improved on 07/14/2020 on p.o. Cipro for 500 mg twice a day for the next 4 days. Patient to be followed up in the surgical clinic in 2 weeks Physical Exam Vital Signs: Temp Pulse Resp BP Pulse Ox 97.6 F 72 20 143/73 H 98 07/14/20 11:32 07/14/20 11:32 07/14/20 11:32 07/14/20 11:32 07/14/20 11:32 Intake & Output 07/13/20 07/14/20 07/15/20 06:59 06:59 06:59 Intake Total 3255 2540 590 Output Total 1000 2300 1000 Balance 2255 240 -410 Weight 103 kg 92.2 kg Results Laboratory Results: WBC 6.2 10^3/uL (4.0-10.5) 07/14/20 04:54 RBC 3.53 10^6/uL (3.72-5.28) L 07/14/20 04:54 Hgb 11.9 g/dL (12.0-15.5) L 07/14/20 04:54 Hct 34.4 % (36.0-47.0) L 07/14/20 04:54 MCV 97 fl (80-97) 07/14/20 04:54 MCH 33.7 pg (27.0-33.4) H 07/14/20 04:54 MCHC 34.6 g/dL (32.0-36.0) 07/14/20 04:54 RDW 13.6 % (11.5-14.0) 07/14/20 04:54 Plt Count 195 10^3/uL (150-450) 07/14/20 04:54 Lymph % (Auto) 5.7 % (13-45) L 07/14/20 04:54 [place] % (Auto) 5.6 % (3-13) 07/14/20 04:54 Eos % (Auto) 1.5 % (0-6) 07/14/20 04:54 Baso % (Auto) 0.5 % (0-2) 07/14/20 04:54 Absolute Neuts (auto) 5.4 10^3/uL (1.7-8.2) 07/14/20 04:54 Absolute Lymphs (auto) 0.3 10^3/uL (0.5-4.7) L 07/14/20 04:54 Absolute Monos (auto) 0.3 10^3/uL (0.1-1.4) 07/14/20 04:54 Absolute Eos (auto) 0.1 10^3/uL (0.0-0.6) 07/14/20 04:54 Absolute Basos (auto) 0.0 10^3/uL (0.0-0.2) 07/14/20 04:54 Total Counted 100 07/13/20 06:07 Seg Neutrophils % 86.7 % (42-78) H 07/14/20 04:54 Seg Neuts % (Manual) 85 % (42-78) H 07/13/20 06:07 Band Neutrophils % 4 % (3-5) 07/13/20 06:07 Lymphocytes % (Manual) 6 % (13-45) L 07/13/20 06:07 Monocytes % (Manual) 4 % (3-13) 07/13/20 06:07 Eosinophils % (Manual) 1 % (0-6) 07/13/20 06:07 Basophils % (Manual) 0 % (0-2) 07/13/20 06:07 Abs Neuts (Manual) 6.4 10^3/uL (1.7-8.2) 07/13/20 06:07 Abs Lymphs (Manual) 0.4 10^3/uL (0.5-4.7) L 07/13/20 06:07 Abs Monocytes (Manual) 0.3 10^3/uL (0.1-1.4) 07/13/20 06:07 Absolute Eos (Manual) 0.1 10^3/uL (0.0-0.6) 07/13/20 06:07 Abs Basophils (Manual) 0.0 10^3/uL (0.0-0.2) 07/13/20 06:07 Toxic Granulation SLIGHT 07/11/20 19:00 Toxic Vacuolation PRESENT 07/11/20 19:00 Platelet Comment ADEQUATE 07/13/20 06:07 RBC Morph Comment NORMO-CYTIC/CHROMIC 07/13/20 06:07 Sodium 135.7 mmol/L (137-145) L 07/14/20 04:54 Potassium 4.2 mmol/L (3.6-5.0) 07/14/20 04:54 Chloride 105 mmol/L (98-107) 07/14/20 04:54 Carbon Dioxide 25 mmol/L (22-30) 07/14/20 04:54 Anion Gap 6 (5-19) 07/14/20 04:54 BUN 8 mg/dL (7-20) 07/14/20 04:54 Creatinine 0.77 mg/dL (0.52-1.25) 07/14/20 04:54 Est GFR ( Amer) > 60 (>60) 07/14/20 04:54 Est GFR (MDRD) Non-Af > 60 (>60) 07/14/20 04:54 Glucose 126 mg/dL (75-110) H 07/14/20 04:54 Calcium 7.9 mg/dL (8.4-10.2) L 07/14/20 04:54 Total Bilirubin 0.5 mg/dL (0.2-1.3) 07/10/20 13:41 Direct Bilirubin 0.0 mg/dL (0.0-0.4) 07/10/20 13:41 Neonat Total Bilirubin Not Reportable 07/10/20 13:41 Neonat Direct Bilirubin Not Reportable 07/10/20 13:41 Neonat Indirect Bili Not Reportable 07/10/20 13:41 AST 27 U/L (14-36) 07/10/20 13:41 ALT 22 U/L (<35) 07/10/20 13:41 Alkaline Phosphatase 90 U/L (38-126) 07/10/20 13:41 Total Protein 7.4 g/dL (6.3-8.2) 07/10/20 13:41 Albumin 4.0 g/dL (3.5-5.0) 07/10/20 13:41 Lipase 34.6 U/L (23-300) 07/10/20 13:41 Urine Color YELLOW 07/10/20 13:41 Urine Appearance TURBID 07/10/20 13:41 Urine pH 5.0 (5.0-9.0) 07/10/20 13:41 Ur Specific [place] 1.023 07/10/20 13:41 Urine Protein NEGATIVE mg/dL (NEGATIVE) 07/10/20 13:41 Urine Glucose (UA) NEGATIVE mg/dL (NEGATIVE) 07/10/20 13:41 Urine Ketones NEGATIVE mg/dL (NEGATIVE) 07/10/20 13:41 Urine Blood SMALL (NEGATIVE) H 07/10/20 13:41 Urine Nitrite NEGATIVE (NEGATIVE) 07/10/20 13:41 Urine Bilirubin NEGATIVE (NEGATIVE) 07/10/20 13:41 Urine Urobilinogen NEGATIVE mg/dL (<2.0) 07/10/20 13:41 Ur Leukocyte Esterase NEGATIVE (NEGATIVE) 07/10/20 13:41 Urine WBC (Auto) 4 /HPF 07/10/20 13:41 Urine Bacteria (Auto) 3+ /HPF 07/10/20 13:41 Squamous Epi Cells Auto 2 /HPF 07/10/20 13:41 Amorphous Sediment Auto 3+ /HPF 07/10/20 13:41 Urine Mucus (Auto) MANY /LPF 07/10/20 13:41 Urine Ascorbic Acid NEGATIVE (NEGATIVE) 07/10/20 13:41 Urine Opiates Screen 07/11/20 15:48 Urine Methadone Screen NEGATIVE 07/11/20 15:48 Ur Barbiturates Screen NEGATIVE 07/11/20 15:48 Ur Phencyclidine Scrn NEGATIVE 07/11/20 15:48 Ur Amphetamines Screen NEGATIVE 07/11/20 15:48 U Benzodiazepines Scrn NEGATIVE 07/11/20 15:48 Urine Cocaine Screen 07/11/20 15:48 U Marijuana (THC) Screen NEGATIVE 07/11/20 15:48 SARS-CoV-2 (PCR) NEGATIVE (NEGATIVE) 07/10/20 18:09 Impressions: Abdomen/Pelvis CT 07/10/20 13:15 IMPRESSION: Dilated appendix with very mild is surrounding inflammatory change. Early appendicitis is suspected. Abdomen/Pelvis CT 07/10/20 16:35 IMPRESSION: Acute uncomplicated appendicitis. Chronic and incidental findings as detailed above. Chest X-Ray 07/13/20 00:00 IMPRESSION: Focal opacity in the right lower lobe which may represent infection. Plan Time Spent: Less than 30 Minutes - Follow-up surgical clinic in 2 weeks
== END 2020-07-14 13:03 | disposition home or self-care (01) | DRG 340 ==
LOC: ER 13:00 → EH 18:17 → 4N 21:27 → OBSVTOIN 07-12 13:28
PROVIDERS: ATTEND Surgery
PROC: 0DTJ4ZZ Resection of Appendix, Percutaneous Endoscopic Approach (ICD-10-PCS; principal; 2020-07-11 16:00)
DX: K35.32 Acute appendicitis with perforation, localized peritonitis, and gangrene, without abscess (principal); F14.90 Cocaine use, unspecified, uncomplicated; J45.909 Unspecified asthma, uncomplicated; F17.200 Nicotine dependence, unspecified, uncomplicated; Z88.0 Allergy status to penicillin
CPT/HCPCS: 36415; 71046; 74176; 74177; 80048; 80053; 80307; 81001; 83690; 840; 85025; 87040; 87086; 87635; 88304; 96361; 96365; 96375; 99140; 99285; C9803; G0378; J0131; J0744; J1100; J1170; J1885; J2001; J2250; J2270; J2405; J2704; J2710; J3010; J3490; J7120; J7121; S0028; S0119